=== PATIENT | male | born 1985 | race Caucasian/White ===

== ENCOUNTER 2021-03-10 05:24 | Day surgery (SDC) | payer OTHER ==
[2021-03-09 14:47] VITALS: BMI 33.2
[2021-03-10] MEDS ORDERED: LIDOCAINE HCL/PF 1% SDV 5ML VIAL ONE (09:20)
[2021-03-10] MEDS ORDERED: DEXAMETHASONE SOD PHOSPHATE 10 MG/1 ML VIAL ONE (09:20)
[2021-03-10] MEDS ORDERED: MIDAZOLAM HCL 2 MG/2 ML SINGLE DOSE VIAL ONE ×2 (11:12)
[2021-03-10] MEDS ORDERED: PROPOFOL 20 ML ONE (11:17)
[2021-03-10] MEDS ORDERED: LIDOCAINE 1% P/F 10 MG/ML VIAL INF ONE (11:23)
[2021-03-10] MEDS ORDERED: IOHEXOL 180 MG/1 ML ML IJ ONE (11:23)
[2021-03-10] MEDS ORDERED: ONDANSETRON 4 MG/2 ML VIAL IVPUSH PRN (11:47)
[2021-03-10] MEDS ORDERED: ACETAMINOPHEN 325 MG TABLET (FP) PO PRN (11:47)
[2021-03-10] MEDS ORDERED: oxyCODONE HCL 5 MG TABLET PO PRN ×2 (11:47)
[2021-03-10] MEDS ORDERED: LACTATED RINGERS SOLUTION 1,000 ML IV SCH (12:00)
[2021-03-10 17:45] VITALS: BP 127/77; PULSE 73; TEMP 97.9
== END 2021-03-10 14:35 | disposition home or self-care (01) ==
LOC: JASU-SURG 05:24
PROVIDERS: ATTEND Physical Medicine & Rehabilitation
PROC: 3E0R3GC Introduction of Other Therapeutic Substance into Spinal Canal, Percutaneous Approach (ICD-10-PCS; 2021-03-10)
PROC: 3E0S3GC Introduction of Other Therapeutic Substance into Epidural Space, Percutaneous Approach (ICD-10-PCS; principal; 2021-03-10 11:22)
DX: G97.1 Other reaction to spinal and lumbar puncture (principal)
CPT/HCPCS: 76000-TC-FY; J1100

== ENCOUNTER 2021-08-02 13:18 | Emergency (ER) | payer OTHER ==
[2021-08-02 14:04] VITALS: BP 123/78; PULSE 74; TEMP 98.9; BMI 33.2
[2021-08-02 16:37] LABS: URINE APPEARANCE CLEAR; URINE BILIRUBIN NEGATIVE (NEGATIVE); URINE COLOR YELLOW; URINE GLUCOSE (UA) NEGATIVE (NEGATIVE); URINE KETONE NEGATIVE (NEGATIVE); URINE LEUK ESTERASE NEGATIVE (NEGATIVE); URINE NITRITE NEGATIVE (NEGATIVE); URINE PROTEIN NEGATIVE (NEGATIVE); URINE UROBILINOGEN 0.2 mg/dL (0.2-1.0)
== END 2021-08-02 16:53 | disposition home or self-care (01) ==
LOC: JER 13:18
DX: N43.3 Hydrocele, unspecified (principal)
CPT/HCPCS: 36415; 76870-TC; 81003; 87086; 87491; 87591; 99284-25

== ENCOUNTER 2022-12-04 04:31 | Day surgery (SDC) | payer OTHER ==
[2022-11-30 16:32] VITALS: BMI 33.5
[2022-12-04] MEDS ORDERED: BUPIVACAINE HCL/PF 0.5% (5MG/ML) 10 ML VIAL ONE (08:45)
[2022-12-04] MEDS ORDERED: BUPIVACAINE HCL/PF 0.25% (2.5MG/ML) 10 ML VIAL ONE (08:45)
[2022-12-04] MEDS ORDERED: LIDOCAINE HCL/PF 1% SDV 5ML VIAL ONE (08:45)
[2022-12-04] MEDS ORDERED: MIDAZOLAM HCL 2 MG/2 ML SINGLE DOSE VIAL ONE ×2 (10:57→11:06)
[2022-12-04] MEDS ORDERED: IOHEXOL 180 MG/1 ML ML IJ ONE (11:12)
[2022-12-04] MEDS ORDERED: LIDOCAINE HCL 1% PRESERVATIVE FREE - 30ML VIAL NR ONE (11:12)
[2022-12-04 12:10] VITALS: RESP 16; TEMP 97.3
[2022-12-04 14:41] VITALS: BP 129/80; PULSE 81
== END 2022-12-04 14:50 | disposition home or self-care (01) ==
LOC: JASU-SURG 04:31
PROVIDERS: ATTEND Physical Medicine & Rehabilitation
PROC: 3E0R3GC Introduction of Other Therapeutic Substance into Spinal Canal, Percutaneous Approach (ICD-10-PCS; principal; 2022-12-04 10:00)
DX: M54.16 Radiculopathy, lumbar region (principal); M54.50 Low back pain, unspecified; G97.1 Other reaction to spinal and lumbar puncture
CPT/HCPCS: 76000-TC-FY

== ENCOUNTER 2022-12-06 18:33 | Emergency (ER) | payer OTHER ==
[2022-12-06 18:54] VITALS: RESP 20; BMI 33.2
[2022-12-06 22:22] LABS: EOS % 1.1 % (0-4.5); HEMATOCRIT 42.1 % (35.4-49); HEMOGLOBIN 14.3 GM/dL (11.7-16.9); LYMPH % 31.2 % (8-40); MCH 28.5 pg (25.7-33.7); MEAN CELL VOLUME 83.7 fl (80-96); MEAN PLT VOLUME 8.4 fl (7.5-11.1); MONO % 9.5 % (3.8-10.2); NEUT % 57.2 % (42.8-82.8); PLATELET COUNT 297 10^3/uL (134-434); RBC 5.03 M/mm3 (4.00-5.60); RDW 14.1 % (11.9-15.9); WHITE BLOOD COUNT 12.1 K/mm3 (4.0-10.0)
[2022-12-06] MEDS ORDERED: METOCLOPRAMIDE HCL INJECTION 10 MG/2 ML VIAL IVPB ONE (22:25)
[2022-12-06] MEDS ORDERED: SODIUM CHLORIDE 0.9% 500 ML INFUS.BAG IV ONE (22:25)
[2022-12-06] MEDS ORDERED: METOCLOPRAMIDE HCL INJECTION 10 MG/2 ML VIAL ONE (22:32)
[2022-12-06 22:36] VITALS: BP 137/96; PULSE 82; TEMP 98.7
[2022-12-06 23:03] LABS: ALBUMIN 4.2 g/dl (3.4-5.0); BILIRUBIN,TOTAL 0.6 mg/dL (0.2-1); BLOOD UREA NITROGEN 11.3 mg/dL (7-18); CALCIUM 8.9 mg/dL (8.5-10.1); CREATININE 1.1 mg/dL (0.55-1.3); TOT PROT 8.4 g/dl (6.4-8.2)
== END 2022-12-07 00:44 | disposition home or self-care (01) ==
LOC: JER 18:33
PROC: 3E033GC Introduction of Other Therapeutic Substance into Peripheral Vein, Percutaneous Approach (ICD-10-PCS; principal; 2022-12-06)
DX: R00.0 Tachycardia, unspecified (principal); R51.9 Headache, unspecified; R07.9 Chest pain, unspecified
CPT/HCPCS: 36415; 70450-TC; 71046-TC-FY; 80053; 84484; 85025; 93005; 93010; 99285-25